=== PATIENT | male | born 1980 ===

== ENCOUNTER 2021-02-05 10:44 | Day surgery (SDC) | payer OTHER, SELFPAY ==
[2021-02-04 09:46] VITALS: BMI 22.3
[2021-02-05] VITALS (7 sets, daily range): BP systolic 98–115; BP diastolic 46–73; PULSE 49–76; RESP 12–16; TEMP 36.1–36.5; O2SAT 96–100; BMI 22.6
--- NOTE | 2021-02-05 10:56 | SUR.PREOP ---
Rapid covid swab collected and sent to lab.
[2021-02-05 11:16] LABS: COVID19 -Nasal RAPID Negative (Negative)
[2021-02-05] MEDS: LACTATED RINGERS 1,000 ML 100 ML IV ×2 (11:41→14:03)
--- NOTE | 2021-02-05 11:57 | SUR.PREOP ---
Left foot cleansed with chlorhexidine 2%.
--- NOTE | 2021-02-05 13:12 | PM.PREOP ---
Pre-operative Note COVID-19 COVID-19 status: Negative Result date/Date tested (Pos, Neg/Pending): 02/05/21 Interval Note History & Physical reviewed/Exam performed by Physician: Yes Changes to H&P: No
--- NOTE | 2021-02-05 13:13 | PM.OP.1 ---
Operative Date/Time/Diagnoses Date of procedure: 02/05/21 Time of procedure: 13:13 Pre-op diagnosis: Left metatarsalgia, painful chronic skin growth Post-op diagnosis: same Procedure & Clinicians Procedure: Left third metatarsal osteotomy and plantar chronic keratoderma excision Same procedure as scheduled: Yes Indications: Painful left ball of foot keratodermas and prominent third metatarsal. Conservative measures failed to alleviate his pain and he wished to have surgical intervention at this time. Surgeon: Estephanie Acuña Click Yes if Unassisted: Yes Anesthesia Type: General Operative Notes Closure Type: primary Specimen(s): none sent Estimated Blood Loss (mL): 20 Blood products transfused: none Procedure in detail: The patient was brought to the operating room and placed on the operating table in the supine position, the tourniquet was placed about the leftthigh. Well padded appropriately aligned. After induction of general anesthesia the foot and ankle were prepped and draped in the usual aseptic manner. The tourniquet was inflated. Attention was directed to the plantar foot where two converging elliptical incisions were made around the firm keratodermas under the third metatarsal head area. These showed no underlying unusual growth into the subcutaneous tissue and they were passed off the field. Next a linear incision was made over the dorsal third metatarsal into the metatarsophalangeal joint. The incision was deepened through subcutaneous tissues being careful to identify and retract all vital neural and vascular structures. All bleeders were cauterized and ligated as necessary. Once the capsule was entered the metatarsal head and neck were exposed and using the aid of C-arm, a saw was used to make a horizontal osteotomy at the head of the metatarsal and push back proximally. A slight additional amount of bone was planed away from the third metatarsal shaft to thin the area. This was temporarily fixated with a guidewire and verified on C-arm to be in good alignment. Using standard AO technique, a 2-0 screw was placed across this osteotomy. The guidewire was removed this was checked under C-arm and strength was good as well as compression. Excess residual bone from the dorsal overhang of the shaft was gently reduced/removed and allowed to be smooth. The areas were irrigated with copious amounts of normal saline. The tourniquet was deflated, a prompt hyperemic response was seen to the foot. Subcutaneous closure dorsal incision was 4-0 vicryl and skin closure to the dorsal and plantar incisions were 3-0 and 2-0 Nylon. A sterile dressing was placed on the foot, and stockinette and post op shoe. He was transferred to the PACU with vital signs stable and vascular status intact to the foot. Complications: none Post-operative Condition: stable Disposition: PACU Plan for aftercare: Following a period of postoperative monitoring, the patient will be discharged home on written and oral postoperative instructions including keeping the dressing dry and intact, avoiding ambulation on the foot, icing and elevating the foot when seated home. DVT prevention techniques have been reviewed. For the 1st postoperative visit the dressing will be changed and close to the 4th postoperative week we will get x-rays.
[2021-02-05] MEDS: CEFAZOLIN 2 GM/100 ML FROZ.PIGGY IV (13:15)
--- NOTE | 2021-02-05 13:37 | SUR.OPER ---
Supine on padded OR bed, head on pillow, arms secured on padded arm boards at <90 degrees abduction, legs uncrossed, safety belt at thigh, tape over blanket over lower legs.
[2021-02-05] MEDS: BUPIVACAINE 0.5% (PF) VIAL 30 ML INJ (13:46)
[2021-02-05] MEDS: OXYCODONE/ACETAMINOPHEN 5/325 TABLET 1 TAB PO (14:54)
--- NOTE | 2021-02-05 15:04 | SUR.PHASEI ---
States that his heart rate was 50 going in to surgery, BP normally low. Mild light-headedness, delined having HOB lowered.
--- NOTE | 2021-02-05 15:08 | SUR.PHASEI ---
awake and oriented, ready for transfer, pleasant and cooperative
--- NOTE | 2021-02-05 15:26 | SUR.PHASEII ---
200 ml infused for OR IV. hand-off to Pito Live RN
== END 2021-02-05 15:30 | disposition home or self-care (01) ==
PROVIDERS: Family Provider Family Medicine; PCP Family Medicine; Referring Provider Family Medicine; Visit Provider Podiatrist
PROC: 0QBP0ZZ Excision of Left Metatarsal, Open Approach (ICD-10-PCS; CPT 28292; principal; 2021-02-05 12:45)
DX: L85.1 Acquired keratosis [keratoderma] palmaris et plantaris (principal); M79.672 Pain in left foot; M77.42 Metatarsalgia, left foot; M21.6X2 Other acquired deformities of left foot; L84 Corns and callosities; Z87.891 Personal history of nicotine dependence
CPT/HCPCS: 28308; 11420; 87635; J0690; J1100; J1885; J2250; J2405; J2704; J3010

== ENCOUNTER 2023-09-18 14:59 | Emergency (ER) | payer OTHER, SELFPAY ==
[2023-09-18 15:03] VITALS: BP 131/73; PULSE 89; RESP 16; TEMP 36.6; O2SAT 99; BMI 24.4
--- NOTE | 2023-09-18 15:05 | DI.RAD.S_ITS ---
PROCEDURE: XR FOOT RT MIN 3V INDICATIONS: steel beam landed on feet TECHNIQUE: 3 views of the foot were acquired. COMPARISON: None. FINDINGS: Bones: No fractures or dislocations. No suspicious bony lesions. Soft tissues: No tibiotalar joint effusion. Achilles tendon appears normal. IMPRESSION: No acute bony abnormality identified. Dictated by: Benton Harris M.D. on 09/18/2023 at 16:57 Approved by: Benton Harris M.D. on 09/18/2023 at 16:58
--- NOTE | 2023-09-18 15:05 | DI.RAD.S_ITS ---
PROCEDURE: XR FOOT LT MIN 3V INDICATIONS: steel beam landed on feet TECHNIQUE: 3 views of the foot were acquired. COMPARISON: [facility] [place], [place], XR FOOT 3+ VIEWS LEFT, 03/08/2021, 13:02. FINDINGS: Bones: 3rd digit proximal phalanx distal aspect transverse fracture. This was not seen on 03/08/2021. No dislocations. 3rd metatarsal head screw. No suspicious bony lesions. Soft tissues: No tibiotalar joint effusion. Achilles tendon appears normal. IMPRESSION: 3rd digit proximal phalanx fracture at the distal aspect. This could represent a subacute or chronic fracture. Dictated by: Benton Harris M.D. on 09/18/2023 at 16:51 Approved by: Benton Harris M.D. on 09/18/2023 at 16:56
[2023-09-18] MEDS: KETOROLAC 30 MG/ML VIAL IM (15:41)
--- NOTE | 2023-09-18 16:42 | ED_ITS ---
HPI - Extremity Injury (Lower) <Joce Duncan PA-C - Last Filed: 09/18/23 17:24> General Chief Complaint: Extremity Injury, Lower Stated Complaint: BROKEN FOOT Time Seen by Provider: 09/18/23 15:23 Source: patient Mode of arrival: Family Vehicle History of Present Illness HPI Narrative: 43-year-old male presents to the ED status post a foot injury sustained at work just prior to arrival. 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 Patient is complaining of significant pain in the left foot, minimal discomfort in the right foot. Strength and sensation intact. Patient denies numbness, tingling, weakness. Related Data Home Medications Medication Instructions Recorded Confirmed No Known Home Medications 12/06/21 01/17/22 Allergies Allergy/AdvReac Type Severity Reaction Status Date / Time No Known Drug Allergies Allergy Verified 09/18/23 15:05 Review of Systems <Joce Duncan PA-C - Last Filed: 09/18/23 17:24> Constitutional Constitutional: Denies chills, Denies fatigue, Denies fever(s), Denies frequent falls, Denies lethargy and Denies weakness Eyes Eyes: Denies change in vision, Denies eye discharge, Denies irritation and Denies loss of vision ENT Ears, Nose, Mouth, and Throat: Denies change in voice, Denies dizziness, Denies neck pain, Denies sore throat and Denies throat swelling Cardiovascular Cardiovascular: Denies chest pain, Denies irregular heart rhythm, Denies lightheadedness, Denies palpitations, Denies dyspnea, Denies dyspnea on exertion and Denies orthopnea Respiratory Respiratory: Denies cough, Denies dyspnea, Denies dyspnea on exertion and Denies wheezing Gastrointestinal Gastrointestinal: Denies abdominal pain, Denies change in bowel habits, Denies diarrhea, Denies nausea and Denies vomiting Musculoskeletal Musculoskeletal: Denies neck pain and Denies numbness Comments: Bilateral foot pain, L>R Integumentary/Breasts Skin/Breast: Denies pruritus, Denies erythema, Denies rash and Denies wounds Neurologic Neurologic: Denies behavioral changes, Denies confusion, Denies dizziness, Denies frequent falls, Denies loss of vision, Denies numbness and Denies weakness Psychiatric Psychiatric: Denies anxiety, Denies behavioral changes, Denies confusion, Denies depression, Denies homicidal ideation and Denies suicidal ideation Endocrine Endocrine: Denies fatigue, Denies flushing and Denies palpitations Hematologic/Lymphatic Hematologic/Lymphatic: Denies easy bruising Allergic/Immunologic Allergic/Immunologic: Denies urticaria, Denies throat swelling and Denies wheezing Patient History <Joce Duncan PA-C - Last Filed: 09/18/23 17:24> Medical History History of CVA in adulthood Surgical History H/O cardiac radiofrequency ablation (2013) History of carpal tunnel repair (2018) History of vasectomy Hx of elbow surgery Social History household members: significant other and children Smoking Status: Former smoker alcohol intake: former Smoking Status: Former smoker Substance Use Type: marijuana Exam <Joce Duncan PA-C - Last Filed: 09/18/23 17:24> Narrative Exam Narrative: Const General:?cooperative, healthy appearing and comfortable [facility] Head:?normal to inspection Ears:?hearing grossly normal bilaterally Nose:?external nose normal Face and sinus:?normal facial exam and sinuses nontender Mouth:?oral mucosae normal Throat:?posterior oropharynx normal Eyes General:?appearance normal, both eyes and all related structures Neck Neck:?normal visual inspection and no lymphadenopathy noted Resp Effort & Inspection:?normal respiratory effort Auscultation:?clear to auscultation bilaterally Cardio Rate:?regular rate Rhythm:?regular rhythm Musculoskeletal There is some bruising, swelling, tenderness to palpation of the left foot at the base of the toes. There is full range of motion. Range of motion is limited by pain. Strength and sensation is intact. No tenderness to palpation, swelling or bruising of the right foot. Patient is neurovascularly intact. Neuro General:?patient alert, patient awake and patient oriented x3 Initial Vital Signs Initial Vital Signs: Vital Signs Temperature 98 F 09/18/23 15:03 Pulse Rate 89 09/18/23 15:03 Respiratory Rate 16 09/18/23 15:03 Blood Pressure 131/73 09/18/23 15:03 Pulse Oximetry 99 09/18/23 15:03 Oxygen Delivery Method Room Air 09/18/23 15:03 <Magdalena Perez DO - Last Filed: 09/19/23 11:28> Initial Vital Signs Initial Vital Signs: Vital Signs Temperature 98 F 09/18/23 15:03 Pulse Rate 89 09/18/23 15:03 Respiratory Rate 16 09/18/23 15:03 Blood Pressure 131/73 09/18/23 15:03 Pulse Oximetry 99 09/18/23 15:03 Oxygen Delivery Method Room Air 09/18/23 15:03 Course <Joce Duncan PA-C - Last Filed: 09/18/23 17:24> Orders Ordered: Discontinued Medications Ketorolac Tromethamine (Ketorolac 30 Mg/Ml Vial) 30 mg IV NOW ONE Stop: 09/18/23 15:31 Last Admin: 09/18/23 16:33 Dose: Not Given Documented By: ES Ketorolac Tromethamine (Ketorolac 30 Mg/Ml Vial) 30 mg IM NOW ONE Stop: 09/18/23 15:37 Last Admin: 09/18/23 15:41 Dose: 30 mg Documented By: ES Vital Signs Vital signs: Vital Signs - 8 hr 09/18/23 15:03 Temperature 98 F Pulse Rate 89 Respiratory Rate 16 Blood Pressure 131/73 Pulse Oximetry 99 Oxygen Delivery Method Room Air <Magdalena Perez DO - Last Filed: 09/19/23 11:28> Orders Ordered: Discontinued Medications Ketorolac Tromethamine (Ketorolac 30 Mg/Ml Vial) 30 mg IV NOW ONE Stop: 09/18/23 15:31 Last Admin: 09/18/23 16:33 Dose: Not Given Documented By: ES Ketorolac Tromethamine (Ketorolac 30 Mg/Ml Vial) 30 mg IM NOW ONE Stop: 09/18/23 15:37 Last Admin: 09/18/23 15:41 Dose: 30 mg Documented By: ES Vital Signs Vital signs: Vital Signs - 8 hr 09/18/23 15:03 Temperature 98 F Pulse Rate 89 Respiratory Rate 16 Blood Pressure 131/73 Pulse Oximetry 99 Oxygen Delivery Method Room Air MDM - Extremity Injury (Lower) <Joce Duncan PA-C - Last Filed: 09/18/23 17:24> MDM Narrative Medical decision making narrative: 43-year-old male presents to the ED status post a foot injury sustained at work just prior to arrival. Concern for fracture/dislocation versus musculoskeletal sprain/strain versus other. Will obtain x-rays. Will reassess. Will treat pain with ketorolac. X-ray shows a 3rd digit proximal phalanx fracture at the distal aspect. The toe was ozzy-taped with the 2nd toe. Patient was fitted with a walking boot. Recommend ibuprofen for symptoms. Recommend follow-up with his ortho. ED return precautions discussed with patient. Patient verbalized understanding. Medical records reviewed: Yes Discharge Plan Departure Patient Disposition: Home Clinical Impression: Fracture of toe Qualifiers: Encounter type: initial encounter Toe: lesser toe Fracture type: closed Phalanx: proximal Fracture alignment: nondisplaced Instructions: DI for Toe Fracture Activity Restrictions/Additional Instructions: You were evaluated in the ED today for a foot injury. The x-ray shows a 3rd digit proximal phalanx fracture of the 3rd toe. Your fracture toe has been ozzy-taped with the adjoining toe. You may keep toe ozzy-taped, wear a walking boot for support. You may take ibuprofen or Tylenol for pain control. Please follow-up with your orthopedic surgeon as soon as possible. Return to the ED if you have worsening symptoms, numbness, tingling, weakness. Prescriptions: No Action No Known Home Medications Referrals: Jose Manuel Rubio MD [Primary Care Provider] - Stand Alone Forms: Patient Portal/API ED Sign-out <Magdalena Perez DO - Last Filed: 09/19/23 11:28> Cosign ED Attending Charles Attestation: I was immediately available in the department for consultation.
[2023-09-18 17:29] VITALS: BP 141/90; PULSE 69; RESP 16; O2SAT 98
== END 2023-09-18 17:32 | disposition home or self-care (01) ==
PROVIDERS: Emergency Provider Student in an Organized Health Care Education/Training Program; Family Provider Family Medicine; PCP Family Medicine
DX: S92.512A Displaced fracture of proximal phalanx of left lesser toe(s), initial encounter for closed fracture (principal); M79.671 Pain in right foot; W20.8XXA Other cause of strike by thrown, projected or falling object, initial encounter; Y99.0 Civilian activity done for income or pay
CPT/HCPCS: 73630; 96372; 99283; 99284; J1885